=== PATIENT | male | born 1955 | race Caucasian/White ===

== ENCOUNTER 2018-02-14 08:01 | Inpatient (IN) | payer OTHER, SELFPAY ==
[2018-02-14] MEDS ORDERED: Pantoprazole 40 MG VIAL ONE (08:12)
[2018-02-14 08:29] LABS: #Basophils 0.1 thou/uL (0.0-0.2); #Eosinphils 0.1 thou/uL (0.0-0.7); #Monocytes 1.4 thou/uL (0.11-0.59); #Neutrophils 13.9 thou/uL (1.40-6.50); %Basophils 0.4 % (0.0-1.0); %Eosinophils 0.4 % (0.0-10.0); %Lymphocytes 11.7 % (21.0-51.0); %Monocytes 7.9 % (0.0-10.0); %Neutrophils 79.6 % (42.0-75.0); Hemoglobin 12.2 g/dL (14.0-18.0); Mean Corpuscular HGB CONC 32.6 g/dL (32.0-36.0); Mean Corpuscular Volume 94.9 fL (78.0-98.0); Mean Platelet Volume 7.4 fL (7.4-10.4); Platelet Count 272 thou/uL (130-400); Red Blood Cell (RBC) Count 3.95 mill/uL (4.70-6.10); White Blood Cell (WBC) Count 17.5 thou/uL (4.8-10.8)
[2018-02-14 08:53] LABS: CKMB 0.6 ng/mL (0-6.6); Troponin I 0.012 ng/mL (< 0.028)
[2018-02-14 09:00] LABS: ALT (SGPT) 14 U/L (8-55); AST (SGOT) 23 U/L (5-34); Albumin 3.9 g/dL (3.4-4.8); Alkaline Phosphatase 68 U/L (40-150); Anion Gap 17 mmol/L (10-20); BUN (Urea Nitrogen) 56 mg/dL (8.4-25.7); Bilirubin, Total 0.6 mg/dL (0.2-1.2); Calc. Creatinine Clearance 0 mL/min (70-130); Calcium 9.3 mg/dL (7.8-10.44); Carbon Dioxide 23 mmol/L (23-31); Chloride 102 mmol/L (98-107); Estimated GFR-MDRD 78; Globulin 3.1 g/dL (2.4-3.5); Glucose 153 mg/dL (80-115); Potassium 4.4 mmol/L (3.5-5.1); Sodium 138 mmol/L (136-145)
[2018-02-14] MEDS ORDERED: Acetaminophen 650 MG Suppository PR PRN (09:30)
[2018-02-14] MEDS ORDERED: Ondansetron HCl/PF 4 MG/2 ML Vial IVP PRN ×2 (09:30→16:15)
[2018-02-14] MEDS ORDERED: hydrALAZINE 20 MG/ML VIAL SLOW IVP PRN (09:30)
[2018-02-14] MEDS ORDERED: Bisacodyl 5 MG TAB PO PRN (09:30)
[2018-02-14] MEDS ORDERED: Senokot S 8.6-50 MG TAB PO PRN (09:30)
[2018-02-14] MEDS ORDERED: Pantoprazole 80 MG in Sodium Chloride 0.9% 100 ML IVP SCH (09:45)
[2018-02-14] MEDS ORDERED: Multivitamins, Adult 10 ML, Folic Acid 1 MG, Thiamine HCl 100 MG in Dextrose 5 %-0.45 %... IV SCH (09:45)
--- NOTE | 2018-02-14 10:29 | RAD ---
FRONTAL VIEW CHEST: Date: 02/14/18 INDICATION: No prior comparison. INDICATION: Nausea and vomiting. FINDINGS: Lungs are hyperinflated. There are remote rib fractures of the posterolateral, inferior right chest. No evidence of consolidation, effusion, or pneumothorax. Cardiac silhouette is normal in size. IMPRESSION: 1. Pulmonary emphysema. 2. Remote right rib deformities, inferiorly. POS: [facility]
[2018-02-14] MEDS ORDERED: PROPOFOL 200 MG/20 ML VIAL ONE (11:32)
[2018-02-14] MEDS ORDERED: PROVENTIL INHALER 6.7 G (200 INHALATIONS) INH PRN (11:59)
--- NOTE | 2018-02-14 12:18 | HP ---
DATE OF ADMISSION: 02/14/2018 PRIMARY CARE PHYSICIAN: [facility]. CHIEF COMPLAINT: Dizziness, lightheadedness as well as coffee-ground emesis and dark black stool. HISTORY OF PRESENT ILLNESS: Mr. Hart is a 63-year-old male with significant past medical history of emphysema, who presented to the emergency room with above-mentioned complaint. History is mainly obtained by the patient himself, but he is a rather poor historian. Case has been discussed with adm itting ER physician and electronic medical records have been reviewed. Mr. Hart reports that he has been taking a lot of lmwg-epn-gycydvw pain medications as well as col d medications and sodium bicarbonate for his various aches and pains and some abdominal discomfort. Yesterday, he was feeling very dizzy and lightheaded walking back from a store and decided to rest fo r the rest of the day. He woke up in the middle of the night feeling nauseated and he started to thr ow up what looked like a blackish vomiting. He then started to proceed to pass black stools about e same time. He vomited about twice and then he presented to the ER. He has been feeling weak, tire d, dizzy and lightheaded all this time. He denies history of similar symptoms in the past. He does not have any abdominal discomfort or cramping. He does report that he drinks beer almost on a daily basis, anywhere from 3 beers to a six pack a day. Other than that, he denies any recent illnesses. He denies any fever, chills, diarrhea or abdominal pain. He denies any chest pain, shortness of sultana th. No sick contacts. No recent travel. Upon presentation to the emergency room, he was somewhat tachycardic with a pulse rate of 118. His b lood pressure was also on the lower side with initial blood pressure 97/77. He was resuscitated with IV fluids which helped improve his blood pressure to 119/77. He was given one dose of IV Protonix. His workup showed hemoglobin of 12.2 with no baseline available. He has WBC elevated to 17.5. Seru m chemistries was otherwise unremarkable. He is now being admitted for upper GI bleed. Currently, kimberlyn mason is hemodynamically stable and is being admitted to telemetry unit. He denies any other associated symptoms. He denies any blood in his urine. He has lost about almost 50 pounds in the course of las t year due to poor appetite. PAST MEDICAL HISTORY: 1. Emphysema. 2. Tobacco abuse. 3. Alcohol abuse. PAST SURGICAL HISTORY: None reviewed with the patient. FAMILY HISTORY: Melanoma in his father and hypertension in his mother who was present at the bedside . His maternal grandfather also had some heart disease and hypertension. SOCIAL HISTORY: He lives with his mother since his 2 years ago. He smokes half pac k of cigarettes per day and drinks anywhere from 3 beers to a six pack a day with occasional hot liqu or on his birthdays. No history of drug abuse. ALLERGIES: None. CURRENT MEDICATIONS: Uogk-ewc-hzklgex DayQuil, ibuprofen or Aleve along with sodium bicarbonate and Libra-[place]. REVIEW OF SYSTEMS: The following complete review of systems was negative, unless otherwise mentioned in the HPI or below: Constitutional: Weight loss or gain, ability to conduct usual activities. Skin: Rash, itching. Eyes: Double vision, pain. ENT/Mouth: Nose bleeding, neck stiffness, pain, tenderness. Cardiovascular: Palpitations, dyspnea on exertion, orthopnea. Respiratory: Shortness of breath, wheezing, cough, hemoptysis, fever or night sweats. Gastrointestinal: Poor appetite, abdominal pain, heartburn, nausea, vomiting, constipation, or diarrhea. Genitourinary: Urgency, frequency, dysuria, nocturia. Musculoskeletal: Pain, swelling. Neurologic/Psychiatric: Anxiety, depression. Allergy/Immunologic: Skin rash, bleeding tendency. LABORATORY DATA: CBC shows WBC 17.5 with 79% neutrophils. Hemoglobin 12.2, hematocrit 37.5. Serum chemistries unremarkable except for BUN of 56 with normal creatinine. Glucose 153. Cardiac enzymes normal. Albumin 3.9. Chest x-ray by my review has no evidence to suggest pleural effusion, edema or infiltrate. He does have emphysema and remote right rib deformities inferiorly. A 12-lead EKG by m y review shows sinus tachycardia with nonspecific ST or T-wave changes with left axis deviation and p ossibly right atrial enlargement. PHYSICAL EXAMINATION: VITAL SIGNS: Most recent vital blood pressure 130/91 with a pulse of 94, respirations 17, saturating 98% on room air, temperature 98.4. GENERAL: He appears cachectic and malnourished, but in no acute distress. He does appear somewhat p owen, but awake, alert, oriented x3. HEENT: Mucous membranes are slightly dry. No oropharyngeal exudate or erythema. Head is normocepha lic, atraumatic. Pupils equal, reactive to light and accommodation. Extraocular movement intact. NECK: Supple without any lymphadenopathy, JVD or bruit. CHEST: Clear to auscultation without any wheezing, rales or rhonchi. ABDOMEN: Soft, nontender to palpation. No hepatosplenomegaly. It does appear mildly distended, but no fluid wave. No guarding, rebound or rigidity. EXTREMITIES: Free of any cyanosis, clubbing, or edema. NEUROLOGIC: Nonfocal. SKIN: Free of any rashes or bruises. I feel warm and dry to touch. PSYCHIATRIC: Normal affect. IMPRESSION AND PLAN: 1. Upper gastrointestinal bleed, most likely related to NSAID abuse, as well as alcohol use. A pept ic ulcer versus gastric variceal bleeding. He will be kept n.p.o. and started on proton pump inhibit or drip. He will require an endoscopy and we will consult Gastroenterology for same. He is currentl y hemodynamically stable and hemoglobin will be trended every 6 hours. We will start him on gentle i ntravenous fluid hydration as he is n.p.o. for now. Care plan was discussed with the patient and his mother present at the bedside and they verbalized understanding. 2. Emphysema, currently well controlled. We will put him on inhalers as needed while in the hospita l. 3. Leukocytosis. No clear evidence of infection at this time likely secondary to ongoing gastrointe stinal bleed. We will check urinalysis as well. His chest x-ray does not suggest any evidence of pn eumonia. We will recheck labs in the morning. 4. Code status: FULL CODE. Discussed with the patient in detail. 5. Add sequential compression devices for deep venous thrombosis prophylaxis. DISPOSITION: Mr. Hart is currently being admitted to the hospital for brisk upper gastrointestina l bleed. Estimated length of stay at this time is at least 2-3 midnights. Further management will d epend upon his clinical course.
[2018-02-14 12:37] LABS: Hemoglobin 10.7 g/dL (14.0-18.0)
--- NOTE | 2018-02-14 12:48 | CON ---
DATE OF CONSULTATION: 02/14/2018 REASON FOR CONSULTATION: Melena. CONSULTING PHYSICIAN: Karyna Harrison M.D. HISTORY OF PRESENT ILLNESS: The patient is a 63-year-old male with past medical history of COPD, GERD, and osteoarthritis, presenting with complaints of darker colored stools. He states that he was in his usual state of health until midnight last night when he experienced acute onset of nausea and vomiting with the vomitus containing a large volume of black coffee ground material. He did have mild resolution of his symptoms afterwards, but did have an additional episode further that morning again with a larger volume black coffee ground emesis concerning for possible bleeding that prompted him to seek healthcare assistance. Associated with his nausea and vomiting, there were also too semi solid/liquid stools that were also dark black that were easy to clean, but also concerning for bleeding. He states that over the last 2 months , he has been taking approximately 6-7 200 mg ibuprofen tablets per day in addition to taking DayQuil for general aches and pains and allergic rhinitis. He also endorses a chronic history of acid reflux for which he has been taking Zantac 150 mg as needed, but his use of this medication has been very sparse. Currently, he states that he is doing well without any symptoms of nausea, vomiting, fevers, chills, abdominal pain, dysphagia, odynophagia, weight loss, constipation or further episodes of GI bleeding since admission. REVIEW OF SYSTEMS: A 10-category review of systems was obtained with all responses and negative except for the pertinent positives as listed in the HPI. PAST MEDICAL HISTORY: Emphysema/COPD, tobacco abuse, acid reflux and alcohol abuse. PAST SURGICAL HISTORY: None. FAMILY HISTORY: Denies any GI malignancies. SOCIAL HISTORY: He smokes approximately 1/2-3/4 pack per day. He also drinks approximately 6-12 beers per day and has been doing so for years. Currently, denies any illicit drug use. OUTPATIENT MEDICATIONS: Lkgb-ftu-mifxfsr DayQuil, ibuprofen, Aleve p.r.n., sodium bicarbonate p.r.n. and Libra-[place] p.r.n. ALLERGIES: None. PHYSICAL EXAMINATION: VITAL SIGNS: No vital signs were entered in the chart. GENERAL: Patient is lying in bed in no acute distress. Alert and oriented x4. NECK: Supple. No JVD or scleral icterus noted. CARDIOVASCULAR: Regular rate and rhythm with no discernible murmurs, gallops or rubs. RESPIRATORY: Diminished breath sounds in all lung morrison with some mild resistance to air flow. Otherwise, no discernible wheezes or rales. ABDOMEN: Normoactive bowel sounds, soft, nontender, nondistended. EXTREMITIES: No cyanosis, clubbing or edema. LABORATORY DATA: CBC with white blood cell count of 17.5, hemoglobin 12.2, hematocrit 37.5, platelets 272. Chemistry with sodium of 138, potassium 4.4, chloride 102, CO2 of 23, BUN 56, creatinine 0.97, glucose 153, AST 23, ALT 14, alkaline phosphatase 68, total bilirubin 0.6, albumin 3.9. IMAGING DATA: Chest x-ray obtained on 02/14/2018 showed evidence of pulmonary emphysema and right rib deformities consistent with prior fracture. ASSESSMENT AND PLAN: The patient is a 63-year-old male with past medical history of COPD/emphysema, gastroesophageal reflux disease, tobacco abuse, and alcohol abuse presenting with darker coffee ground colored emesis and diarrhea concerning for an upper GI bleed. UPPER GI BLEEDING: The patient is presenting with the acute onset of nausea, vomiting, and diarrhea characterized as having a larger volume black covered coffee ground emesis as well as dark black semi-solid to liquid stools. He had been taking approximately 1156-7526 mg of ibuprofen daily in addition to Aleve and DayQuil p.r.n. prior to this admission. He also endorses a significant drinking history, which could be potentially contributing to his current clinical situation. Currently, the differential could include peptic ulcer disease secondary to NSAID abuse, chemical gastritis secondary to chronic alcohol abuse, esophagitis related to chronic acid reflux, arteriovenous malformation, Dieulafoy lesion and/or possible GI neoplasm. RECOMMENDATIONS: 1. We would continue patient n.p.o. status for now in preparation for EGD later on today. 2. We would continue PPI drip for now given the possibility of an upper GI bleed. The patient does not have any evidence of cirrhosis of the liver, so octreotide is not indicated at this time. 3. We would avoid all NSAIDs or anticoagulation for the time being. We will continue to follow. Please call with any questions. MTDD
[2018-02-14] MEDS ORDERED: Ketamine 50 MG/ML VIAL ONE (15:18)
[2018-02-14] MEDS ORDERED: Fentanyl 100 MCG/2 ML VIAL ONE (16:03)
[2018-02-14] MEDS ORDERED: Promethazine HCl 25 MG/ML VIAL IM PRN (16:15)
[2018-02-14] MEDS ORDERED: Promethazine HCl 25 MG/ML VIAL SLOW IVP PRN (16:15)
--- NOTE | 2018-02-14 16:50 | OP ---
DATE OF PROCEDURE: 02/14/2018 PROCEDURE: Esophagogastroduodenoscopy with control of hemorrhage. INDICATIONS FOR PROCEDURE: Melena, anemia. DESCRIPTION OF PROCEDURE: After the risks and benefits of the procedure were explained to the patient including risks of bleeding, infection, perforation, reactions to anesthesia, aspiration and/or pain, informed consent was obtained. The patient was then taken to the endoscopy suite where deep sedation was administered via propofol and anesthesia support. Once adequate sedation was achieved, the standard gastroscope was introduced into the mouth with intubation of the esophagus, stomach and the proximal small intestine with the findings listed below. The patient tolerated the procedure well with no immediate perioperative complications. After the procedure, he was taken to PACU in satisfactory condition. FINDINGS: ESOPHAGUS: Normal appearing mucosa was seen in the proximal esophagus; however , multiple patches of erosive esophagitis was seen in the mid esophagus and distal esophagus with these patches and erosions extending from the GE junction at 39 cm to 30 cm. None of these erosions exhibited active/recent bleeding and did not reach a confluence or circumferential manner, but did extend longer than 1 cm in certain patches. Otherwise there was no evidence of ulcerations, mass lesions or active/recent bleeding. The diaphragmatic pinch was well seen at 42 cm while the GE junction was well seen at 39 cm denoting a 3 cm hiatal hernia. STOMACH: Normal appearing mucosa was seen in the gastric cardia, fundus, body along the greater curvature and incisura. Increased mucosal erythema and erosions were seen in the gastric antrum with a minimal amount of blood overlying the mucosa in this region. Upon aggressive irrigation and suctioning , the bleeding was seen to be coming from the duodenum itself rather than the antrum. Otherwise there was no evidence of ulcerations, mass lesions or active/ recent bleeding within the stomach. DUODENUM: Upon entry into the duodenal bulb, an active arterial pulsating bleed was seen along the anterior wall of the duodenal bulb with a small overlying clot. Upon irrigation of the entire area, this was the only area that was noted to be actively bleeding; however, there were scattered ulcerations seen within the duodenal bulb, duodenal sweep and proximal portion of the second portion of the duodenum. Then, using epinephrine in a 1:10,000 dilution it was injected into the mucosa in a 4-quadrant pattern around the actively bleeding duodenal bulb ulceration with significant slowing of blood established at that time. Then, using a 10-Anguillan bipolar cautery probe, the actively pulsating ulceration was intervened upon with cautery with good hemostasis achieved afterwards. Again, careful inspection after intervention did not reveal any further areas of active bleeding. Normal appearing mucosa was seen within the second to third portion of the duodenum. IMPRESSION: 1. Numerous scattered erosions measuring greater than 1 cm in size, but not circumferential in the esophagus were seen in the middle and distal esophagus consistent with LA grade C reflux mediated esophagitis. 2. A 3 cm hiatal hernia. 3. Erosive gastritis seen within the gastric antrum, but without evidence of overt ulceration or active bleeding. 4. A 6-7 irregularly based ulceration was seen in the duodenal bulb with an adherent clot in the center and active pulsating bleeding that was intervened upon with epinephrine injection in a 4 quadrant fashion and bipolar cauterization with good hemostasis achieved. 5. Multiple small erosions and ulcerations were seen in the duodenal sweep and proximal portion of the second portion of the duodenum, but no further regions of active/recent bleeding. RECOMMENDATIONS: 1. We would continue to trend H&H and transfuse as necessary to maintain an H& H of 7/21. 2. Continue to monitor clinically for signs of active gastrointestinal bleeding. 3. We would continue PPI drip for 24 hours total therapy and then transfer to 40 mg b.i.d. 4. We will start patient on clear liquid diet. 5. Patient will need close monitoring for the next 48-72 hours given the increased risk of rebleeding during this time. 6. We would avoid all NSAIDs (as this is the most likely cause of his actively pulsating bleed/melena). We will continue to follow. Please call with any questions. DENILSOND
[2018-02-14 19:01] LABS: Hemoglobin 8.8 g/dL (14.0-18.0)
[2018-02-14 21:22] LABS: Bilirubin Negative (Negative); Blood, Urine Moderate (Negative); Clarity CLEAR (Clear); Glucose, Urine (Dipstick) Negative (Negative); Leukocyte Negative (Negative); Nitrite Negative (Negative); Protein, Urine (Dipstick) Negative (Neg-Trace); Urobilinogen 0.2 mg/dL (0.2-1.0); pH, Urine 5.5 (5.0-9.0)
[2018-02-14] MEDS: Sodium Chloride 0.9% 1,000 ML IV SCH (21:22)
[2018-02-14 21:25] LABS: Bacteria/HPF None Seen HPF (None Seen); Hyaline Casts/LPF 0-3 HYALINE CAST LPF (0-3 Hyaline); Squamous Epithelial None Seen HPF (0-3); WBC/HPF None Seen HPF (0-3)
[2018-02-14 21:32] LABS: Amphetamine Not Detected (NotDetected); Barbiturates Screen Not Detected (NotDetected); Benzodiazepine Screen Not Detected (NotDetected); Cocaine Metabolite Screen Not Detected (NotDetected); Medtox Control Line Valid? VALID (VALID); Medtox Reader # READER 1; Methadone Not Detected (NotDetected); Methamphetamine Not Detected (NotDetected); Opiate Screen Not Detected (NotDetected); Oxycodone Screen Not Detected (NotDetected); Phencyclidine (PCP) Not Detected (NotDetected); THC/Cannabinoid Screen Detected (NotDetected); Tricyclic Screen Not Detected (NotDetected)
[2018-02-14] MEDS ORDERED: Diazepam 5 MG TAB PO PRN (21:42)
[2018-02-14] MEDS ORDERED: Diazepam 5 MG TAB PO SCH (21:45)
[2018-02-15] MEDS ORDERED: Diazepam 5 MG TAB PO PRN (04:00)
[2018-02-15] MEDS: Sodium Chloride 0.9% 1,000 ML IV SCH (05:18)
[2018-02-15 06:17] LABS: ALT (SGPT) 9 U/L (8-55); AST (SGOT) 16 U/L (5-34); Albumin 2.9 g/dL (3.4-4.8); Alkaline Phosphatase 43 U/L (40-150); Anion Gap 7 mmol/L (10-20); BUN (Urea Nitrogen) 19 mg/dL (8.4-25.7); Bilirubin, Total 0.7 mg/dL (0.2-1.2); Calc. Creatinine Clearance 99 mL/min (70-130); Calcium 8.1 mg/dL (7.8-10.44); Carbon Dioxide 26 mmol/L (23-31); Chloride 105 mmol/L (98-107); Estimated GFR-MDRD Greater than 90; Globulin 1.9 g/dL (2.4-3.5); Glucose 95 mg/dL (80-115); Potassium 3.4 mmol/L (3.5-5.1); Protein, Total 4.8 g/dL (5.8-8.1); Sodium 135 mmol/L (136-145)
[2018-02-15 06:32] LABS: Syphilis Antibody Nonreactive (Nonreactive); Syphilis Antibody Index 0.07 S/CO (<1.00 Non-Reactive)
[2018-02-15 06:37] LABS: #Eosinphils 0.1 thou/uL (0.0-0.7); #Lymphocytes 2.3 thou/uL (1.20-3.40); #Monocytes 0.8 thou/uL (0.11-0.59); #Neutrophils 4.1 thou/uL (1.40-6.50); %Basophils 0.7 % (0.0-1.0); %Eosinophils 1.2 % (0.0-10.0); %Lymphocytes 30.9 % (21.0-51.0); %Monocytes 10.7 % (0.0-10.0); %Neutrophils 56.4 % (42.0-75.0); Mean Corpuscular HGB CONC 32.8 g/dL (32.0-36.0); Mean Corpuscular Hemoglobin 31.3 pg (27.0-31.0); Mean Corpuscular Volume 95.4 fL (78.0-98.0); Mean Platelet Volume 7.1 fL (7.4-10.4); Platelet Count 201 thou/uL (130-400); RBC Distribution Width 11.7 % (11.5-14.5); Red Blood Cell (RBC) Count 2.55 mill/uL (4.70-6.10); White Blood Cell (WBC) Count 7.3 thou/uL (4.8-10.8)
[2018-02-15] MEDS: Folic Acid 1 MG TAB PO SCH (09:09)
[2018-02-15] MEDS: Magnesium Oxide 400 MG TAB PO SCH (09:09)
[2018-02-15] MEDS: Multivitamin W/ Minerals 1 TAB PO SCH (09:09)
--- NOTE | 2018-02-15 12:37 | PDOC.PN ---
- Subjective Encounter Start Date: 02/15/18 Encounter Start Time: 12:35 Subjective: f/u for acute UGI bleed due to multiple erosions and duodenal ulcer -: s/p epinephrine and cauterization. - Objective MAR Reviewed: Yes Vital Signs & Weight: Vital Signs (12 hours) Temp Pulse Resp BP BP Pulse Ox 02/15/18 07:35 98.3 F 80 16 107/62 97 02/15/18 04:00 97.9 F 71 12 105/56 L 105/56 L 98 Weight Weight 122 lb 8 oz I&O: 02/14/18 02/15/18 02/16/18 06:59 06:59 06:59 Intake Total 1704 Output Total 475 Balance 1229 Result Diagrams: 02/15/18 05:22 02/15/18 05:22 Additional Labs: Microbiology 02/14/18 08:34 Stool Stool Occult Blood ([place]) - Final Laboratory Tests 02/14/18 02/14/18 02/14/18 08:15 12:08 18:51 Hgb 12.2 L 10.7 L 8.8 L U Cannabinoids Screen Syphilis IgG/IgM Ab 02/14/18 02/15/18 21:15 05:22 Hgb U Cannabinoids Screen Detected H Syphilis IgG/IgM Ab Nonreactive Radiology Reviewed by me: Yes (EGD - esophagitis, duodenal/gastric ulcers) EKG Reviewed by me: Yes (Tele - SR) Phys Exam - Physical Examination Constitutional: NAD alert, frail appearing HEENT: PERRLA, sclera anicteric, oral pharynx no lesions Neck: no nodes, no JVD, supple, full ROM Respiratory: no wheezing, no rales, no rhonchi, clear to auscultation bilateral Cardiovascular: RRR, no significant murmur, no rub, gallop Gastrointestinal: soft, non-tender, no distention, positive bowel sounds Musculoskeletal: no edema, pulses present Neurological: normal sensation, moves all 4 limbs Psychiatric: normal affect, A&O x 3 Skin: normal turgor, cap refill <2 seconds Dx/Plan (1) Acute GI bleeding Code(s): K92.2 - GASTROINTESTINAL HEMORRHAGE, UNSPECIFIED Status: Acute Comment: Secondary to duodenal ulceration, s/p cauterization and epinephrine injection, continue Protonix gtt (2) Duodenal ulcer Status: Acute Comment: s/p cauterization and epinephrine injection, Protonix for d/c (3) Esophagitis Code(s): K20.9 - ESOPHAGITIS, UNSPECIFIED Status: Acute Comment: PPI, avoid NSAIDs and smoking (4) Tobacco abuse Code(s): Z72.0 - TOBACCO USE Status: Acute Comment: Tobacco cessation resources (5) Cannabis abuse Code(s): F12.10 - CANNABIS ABUSE, UNCOMPLICATED Status: Acute Comment: Cessation resources - Plan social research assistant, out of bed/ambulate, DVT proph w/SCDs Stable overall -: Transition Protonix to po in next 24h -: Avoid NSAIDs/smoking -: Tobacco cessation resources -: AM lab: CBC * Home in am 02/16/18
[2018-02-15] MEDS ORDERED: Acetaminophen 325 MG TAB PO PRN (13:30)
--- NOTE | 2018-02-16 00:36 | PRG ---
DATE OF SERVICE: 02/15/2018 REASON FOR CONSULTATION: Duodenal ulceration, status post cauterization. SUBJECTIVE: Today, the patient states that he is doing well with no acute events or problems overnig ht. Currently, he denies any nausea, vomiting, fevers, chills, abdominal pain, or GI bleeding. OBJECTIVE: VITAL SIGNS: Temperature 98.3, pulse 73, blood pressure 114/62, respiratory rate 16, satting 97% on room air. GENERAL: The patient was lying in bed in no acute distress. Alert and oriented x4. CARDIOVASCULAR: Regular rate and rhythm. RESPIRATORY: Clear to auscultation bilaterally. ABDOMEN: Normoactive bowel sounds, soft, nontender, nondistended. EXTREMITIES: No cyanosis, clubbing, or edema. LABORATORY DATA: CBC with a white blood cell count of 7.3, hemoglobin 8, hematocrit 24.4, platelets 201,000. Chemistry with sodium of 135, potassium 3.4, chloride 105, CO2 of 26, BUN 19, creatinine 0. 6, glucose 95, AST 16, ALT 9, alkaline phosphatase 43, total bilirubin 0.7. IMAGING DATA: The patient underwent upper endoscopy yesterday on 02/14/2018, which showed the presen ce of a 6-7 mm ulceration seen along the anterior wall of the duodenal bulb with a small overlying cl ot and active arterial pulsating bleeding. This was successfully intervened upon with epinephrine an d bipolar cauterization with good hemostasis achieved. ASSESSMENT AND PLAN: The patient is a 63-year-old male with past medical history of chronic obstruct aubrey pulmonary disease/emphysema, gastroesophageal reflux disease, tobacco abuse and alcohol abuse, pr esenting with duodenal ulceration and active gastrointestinal bleeding. Upper gastrointestinal bleeding: The patient initially presented with acute onset of nausea, vomitin g, and diarrhea, characterized as having large volume black-colored coffee ground emesis as well as d ark-black semisolid to liquid stools. He subsequently underwent upper endoscopy on 02/14/2018 with t he finding of a 6-7 mm ulceration seen along the anterior wall of the duodenal bulb within the center of the ulceration and adherent clot as well as active arterial pulsating consistent with active carla rointestinal bleed. It was successfully intervened upon with epinephrine and bipolar cautery with go od hemostasis achieved. Currently, he is doing well with no evidence of rebleeding from this particu lar site. RECOMMENDATIONS: 1. We would continue PPI by transfer from drip to 40 mg b.i.d. 2. We would avoid all NSAIDs or anticoagulation for the time being. 3. Continue to monitor H&H and transfuse as necessary to maintain an H&H of 11/22. 4. Advance diet as tolerated. We will continue to follow. Please call with any questions.
[2018-02-16] MEDS: Sodium Chloride 0.9% 1,000 ML IV SCH (01:04)
[2018-02-16 06:22] LABS: Band 1 % (5-11); Eosinophils 1 % (0-10); Hemoglobin 7.7 g/dL (14.0-18.0); Lymphocytes 31 % (21-51); MDiff Complete? YES; Mean Corpuscular HGB CONC 33.5 g/dL (32.0-36.0); Mean Corpuscular Hemoglobin 32.1 pg (27.0-31.0); Mean Corpuscular Volume 95.8 fL (78.0-98.0); Mean Platelet Volume 6.9 fL (7.4-10.4); Monocytes 7 % (0-10); Neutrophil 60 % (42-75); Platelet Count 205 thou/uL (130-400); RBC Distribution Width 11.5 % (11.5-14.5); Red Blood Cell (RBC) Count 2.38 mill/uL (4.70-6.10); White Blood Cell (WBC) Count 6.1 thou/uL (4.8-10.8)
[2018-02-16] MEDS: Folic Acid 1 MG TAB PO SCH (08:34)
[2018-02-16] MEDS: Multivitamin W/ Minerals 1 TAB PO SCH (08:34)
[2018-02-16] MEDS: Magnesium Oxide 400 MG TAB PO SCH (08:35)
[2018-02-16 14:44] LABS: Hemoglobin 9.1 g/dL (14.0-18.0)
[2018-02-16 16:13] VITALS: BP 129/63; TEMP 98.1
[2018-02-16 16:28] VITALS: BMI 17.6
--- NOTE | 2018-02-16 22:42 | DIS ---
DATE OF ADMISSION: 02/14/2018 DATE OF DISCHARGE: 02/16/2018 DISCHARGE DIAGNOSES: 1. Acute gastrointestinal bleeding secondary to duodenal ulcerations, stable. 2. Duodenal ulcers, status post cauterization and epinephrine injection 02/14/2018. 3. Acute blood loss anemia secondary to #1. 4. Esophagitis. 5. Tobacco abuse. 6. Cannabis abuse. 7. Alcohol abuse. CONSULTATIONS: Dr. Kc with GI Service. PERTINENT LAB AND X-RAY FINDINGS: Potassium ranged between 3.4-4.4. LFTs within normal limits. CBC showed a white blood cell count ranging between 6.1-17.5, hemoglobin ranged between 7.7-12.2. Urine drug screen dated 02/14/2018, positive for cannabinoids. Syphilis IgG/IgM antibody nonreactive 02/02. Stool Hemoccult dated 02/14/2018, positive x1. Portable chest x-ray dated 02/14/2018 showed emphysematous changes without acute fracture. EGD dated 02/14/2018 showed numerous erosions of the esophagus consistent with LA grade C reflux esophagitis. Erosive gastritis in the gastric antrum not ed. Ulcerations noted in the duodenal bulb. Treatment of the duodenal bulb ulcerations with epineph rine injections and bipolar cauterization. HOSPITAL COURSE: Patient was admitted to the telemetry unit after initially presenting with dizzines s, lightheadedness, and coffee ground emesis. The patient underwent general evaluation after concern for GI bleed, receiving intravenous fluids and placed on Protonix infusion. The patient was placed on n.p.o. status and given IV fluids and evaluated by the Gastroenterology service. Due to patient's acute anemia and GI bleed, the patient underwent EGD evaluation on 02/14/2018 showing multiple gastr ic erosions, as well as grade C esophagitis. The patient was also noted with duodenal ulcerations un dergoing treatment with epinephrine and bipolar cauterization for control of active bleeding. The pa tient was continued on serial H&H monitoring with overall stable values. The patient continued on Pr otonix infusion transitioning to Protonix 40 mg p.o. b.i.d. Overall, the patient remained clinically stable during the hospital course. The patient tolerated regular oral intake, ambulated without ass istance or difficulty with stable vital signs. I have examined the patient at the time of discharge and discussed followup instructions and need for tobacco and alcohol cessation. The patient verbaliz ed understanding and agreement and ready for discharge on 02/16/2018. DISCHARGE MEDICATIONS: 1. Ferrous sulfate 325 mg p.o. b.i.d. 2. Protonix 40 mg p.o. b.i.d. FOLLOWUP: Patient will follow up with [facility]. The patient will follow up with Dave mcallister MD of GI service 3-4 weeks after discharge. CONDITION AT DISCHARGE: Fair. ACTIVITY: Ad nicki. DIET: Heart healthy. CODE STATUS: Full. DISPOSITION: Home 02/16/2018. Total time preparing and coordinating discharge, 33 minutes.
--- NOTE | 2018-02-17 16:45 | PQF ---
HANNAH BATISTA RICHA MD [id number] [facility] [id number] CLINICAL DOCUMENTATION IMPROVEMENT CLARIFICATION FORM: ICD-10 Updated PLEASE DO AN ADDENDUM TO THE PROGRESS NOTE WITH ANY DOCUMENTATION UPDATES OR ADDITIONS AND CARRY THROUGH TO DC SUMMARY. THANK YOU. Date: 02-17-18 ATTN: Please exercise your independent, professional judgment in responding to the clarification form. Clinical indicators are provided on the bottom of this form for your review Please check appropriate box(s): [ ] Protein Calorie Malnutrition: [ ] Mild [ ] Moderate [ ] Severe [ ] Other Malnutrition (please specify) __ [ ] Underweight without malnutrition [ ] Cachexia [ ] Other diagnosis [ ] Unable to determine CLINICAL INDICATORS - SIGNS / SYMPTOMS / LABS BMI 17.6 02-14 (SAMUEL) H&P: CACHECTIC; MALNOURISHED; LOST ABOUT ALMOST 50 LBS IN THE COURSE OF LAST YEAR DUE TO POOR APPETITE RISK FACTORS 02-14 (SAMUEL): DRINKS 3 BEER TO 6 PACK / DAY - ALCOHOL ABUSE EMPHYSEMA/COPD TREATMENT: CPOE: Dietary consult - % WT CHANGE +4% SINCE ADMIT 1. Recommend a Regular diet 2. Recommend Ensure Enlive BID GI CONSULT Moderate Malnutrition (in acute illness) Energy Intake: <75% of estimated energy requirement for > 7 days Weight Loss: 1-2%/1 week; 5%/ 1 month; 7.5%/3 months Other: mild body fat loss; mild muscle mass loss; mild fluid accumulation; Severe Malnutrition (in acute illness) Energy Intake: < 50% of estimated energy requirement for > 5 days Weight Loss: >1-2%/1 week; >5%/1 month; >7.5%/3 months Other: moderate body fat loss; moderate muscle mass loss; moderate- severe fluid accumulation; measurably reduced supervisor record press strength Moderate Malnutrition (in chronic illness) Energy Intake: <75% of estimated energy requirement for >1 month Weight Loss: 5%/1 month; 7.5%/3 months; 10%/6 months; 20%/1 year Other: mild body fat loss; mild muscle mass loss; mild fluid accumulation Severe Malnutrition (in chronic illness) Energy Intake: <75% of estimated energy requirement for >1 month Weight Loss: >5%/1 month; >7.5%/3 months; >10%/6 months; >20%/1 year Other: severe body fat loss; severe muscle mass loss; severe fluid accumulation ; measurably reduced supervisor record press strength THANK YOU, RUPAL (This form is maintained as a part of the permanent medical record) 2015 [employer]. All Rights Reserved Rupal López RN, BS [email or web address] [employer] [facility]ITAL[facility]asper
== END 2018-02-16 18:45 | disposition home or self-care (01) | DRG 378 ==
LOC: ERS 08:01 → 2NO 10:35
PROVIDERS: ADMIT Internal Medicine; ATTEND Internal Medicine
PROC: 0W3P8ZZ Control Bleeding in Gastrointestinal Tract, Via Natural or Artificial Opening Endoscopic (ICD-10-PCS; principal; 2018-02-14)
DX: K26.0 Acute duodenal ulcer with hemorrhage (principal); D62 Acute posthemorrhagic anemia; R64 Cachexia; Z68.1 Body mass index [BMI] 19.9 or less, adult; K22.10 Ulcer of esophagus without bleeding; F17.210 Nicotine dependence, cigarettes, uncomplicated; F12.10 Cannabis abuse, uncomplicated; Z87.01 Personal history of pneumonia (recurrent); F10.10 Alcohol abuse, uncomplicated; E11.9 Type 2 diabetes mellitus without complications; Z91.81 History of falling; J43.9 Emphysema, unspecified; D72.829 Elevated white blood cell count, unspecified; K44.9 Diaphragmatic hernia without obstruction or gangrene; K21.0 Gastro-esophageal reflux disease with esophagitis; K29.70 Gastritis, unspecified, without bleeding; M19.90 Unspecified osteoarthritis, unspecified site
CPT/HCPCS: 36415; 71045; 80053; 80306; 81003; 81015; 82248; 82274; 82553; 84484; 85007; 85025; 85027; 86780; 86850; 86900; 86901; 93005; 96361; 96374; C9113; J2704; J3010; J3411; J7042; J7050